=== PATIENT | female | born 1945 | race African-American/Black ===

== ENCOUNTER 2016-05-24 21:20 | Inpatient (IN) | payer BC, OTHER ==
--- NOTE | ~2016-05-24 | HP ---
History And Physical [place] [id number] [facility] [place]. [address] NAME: NAHID BRITO : 41 STATUS : ADM Mae PAT#: [id number] AGE: 71 ADM/REG DATE : 05/24/16 MR#: [id number] REPORT SERV DATE: 05/25/16 DICTATED BY: MADALYN GUIDRY DATE: 05/25/16 REPORT STATUS : Draft TRANSCRIBED BY: MODElza DATE: 05/25/16 DATE OF ADMISSION: 05/24/2016 HISTORY OF PRESENT ILLNESS: The patient is a 71-year-old, who was seen in the office yesterday with chief complaint of runny nose, sore throat, body aches, and chills. The patient had been coughing, wheezing with tightness in her chest which has worsened in the last two weeks. She had difficulty lying flat. Had noticed an increase in her blood pressure. In the office, had some frontal maxillary tenderness and was given antibiotics, for Zithromax. Later that evening, her symptoms worsened with worsening shortness of breath to the point where the patient felt like she could not catch her breath and was seen in the emergency room and was subsequently admitted for observation and placed on some Solu-Medrol. PAST MEDICAL HISTORY: 1. Mild persistent asthma with acute exacerbation. 2. Type 2 diabetes, with long-term insulin use. 3. Hypercholesterolemia. 4. COPD. 5. Essential hypertension. 6. Stage 4 chronic kidney disease. 7. Sleep apnea. SURGICAL HISTORY: Tonsillectomy, hysterectomy, cholecystectomy, varicose vein stripping, and cardiac bypass in 2009. FAMILY HISTORY: Father is . Mother is . There is a strong family history of diabetes type 2. Grandfather from cancer. Siblings are alive, but also have diabetes and have complications with hypertension. Younger sister has had an MN. SOCIAL HISTORY: She had a history of smoking, but no longer smokes. No alcohol use. The patient has four children. She owns her own home. She lives with family. She is a . 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 ALLERGIES: SHE HAS ALLERGIES TO TOMATOES THAT CAUSES RASH. REVIEW OF SYSTEMS: Complains of shortness of breath, tightness across her chest, anorexia, sore throat, runny nose. Complains of some heartburn, constipation, a little dysuria. CURRENT MEDICATIONS: Niacin 500 mg a day; pantoprazole 40 a day; Spiriva 18 mcg a day; allopurinol 300 a day, she has gout; aspirin 81 mg a day; budesonide 160/4.5 two puffs twice a day; Bumex 2 mg a day; Coreg 12.5 twice a day; Plavix 75 a day; Levemir; Singulair 10 a day; sliding scale NovoLog; 1000 units of vitamin D a day; magnesium 400 mg a day. PHYSICAL EXAMINATION: VITAL SIGNS: She has a blood pressure of 183/75, respiratory rate is 22, pulse rate is 73, she is afebrile at 98.8, and her sat on room air is 98%. History And Physical [address] [address] NAME: NAHID BRITO : 41 STATUS : ADM Mae PAT#: [id number] AGE: 71 ADM/REG DATE : 05/24/16 MR#: [id number] REPORT SERV DATE: 05/25/16 DICTATED BY: MADALYN GUIDRY DATE: 05/25/16 REPORT STATUS : Draft TRANSCRIBED BY: ALLYSON DATE: 05/25/16 HEENT: Within normal limits. LUNGS: Revealed increase in AP diameter with diffuse inspiratory and expiratory wheezing. In any time the patient takes deep breath, she is coughing and has a very raspy voice. CARDIAC: Regular rate. No murmurs, gallops, or thrills. ABDOMEN: Obese, soft with positive bowel sounds. No appreciable organomegaly. EXTREMITIES: Without any edema, cyanosis, or clubbing. Pulses are 2+ in the lower extremities. IMPRESSION: The patient with exacerbation of asthma. PLAN: We will observe her for a full 24 hours before making a decision of admission. Continue her on the antibiotics. We will re-evaluate tomorrow for possible discharge to home. ASCENCION/ALLYSON Madalyn Guidry M.D. / [id number] CC: Madalyn Guidry M.D.
--- NOTE | ~2016-05-24 | CN ---
Consultation Report [facility] [address] [place]. [address] NAME: NAHID BRITO : 41 STATUS : ADM Mae PAT#: [id number] AGE: 71 ADM/REG DATE : 05/24/16 MR#: [id number] REPORT SERV DATE: 05/27/16 DICTATED BY: JEANNETTE HERNANDEZ DATE: 05/26/16 REPORT STATUS : Draft TRANSCRIBED BY: MODL DATE: 05/26/16 PULMONARY CONSULTATION DATE OF CONSULTATION: 05/26/2016 REASON FOR CONSULTATION: Asthma exacerbation. HISTORY OF PRESENT ILLNESS: Ms Brito is a 71-year-old black female, former smoker, with obstructive sleep apnea on CPAP, and asthma plus possible COPD who was admitted complaining of a one-week history of increasing shortness of breath, wheezing, cough productive of yellow sputum, chills, and yellow nasal discharge. She states she was evaluated outpatient including negative for pharyngeal flu swab. She was prescribed azithromycin and had a poor response after one dose. She states she developed significant chills so she presented to her primary care physician and was subsequently admitted here. Pulmonary was consulted due to persistent symptoms despite bronchodilators, antibiotics, inhaled steroids, and systemic steroids. Currently, the patient is complaining of shortness of breath, wheezing, cough productive of yellow sputum, nasal congestion, and malaise. She states she was initially slightly better than on admission but is worse today than yesterday. PAST MEDICAL HISTORY: 1. Asthma diagnosed approximately 5 years ago, the patient has been intubated for asthma. 2. COPD-the patient states she has COPD, however, her most recent available pulmonary function testing in the medical record is from 08/28/2014 and does not reveal any airway obstruction. 3. Obstructive sleep apnea-on CPAP. 4. Former smoker. 5. Seasonal allergies. 6. Diabetes mellitus. 7. Hypertension. 8. Coronary artery disease/status post CABG. 9. Hyperlipidemia. 10.Chronic kidney disease. 11.Previous hysterectomy. 12.Previous cholecystectomy. 13.Tonsillectomy. 14.Varicose vein stripping. FAMILY HISTORY: She denies a family history of pulmonary diseases. SOCIAL HISTORY: Ms Brtio smoked one to one and half packs of cigarettes per day for 30 years and quit smoking 10 years ago. She has a long history of secondhand smoke exposure- her smoked and was "a chain smoker." She denies ethanol intake, past/present drug Consultation Report [place] [address] [facility] [place]. [address] NAME: NAHID BRITO : 43 STATUS : ADM Mae PAT#: [id number] AGE: 71 ADM/REG DATE : 05/24/16 MR#: [id number] REPORT SERV DATE: 05/27/16 DICTATED BY: JEANNETTE HERNANDEZ DATE: 05/26/16 REPORT STATUS : Draft TRANSCRIBED BY: ALLYSON DATE: 05/26/16 use, occupational exposures, or chewing tobacco. 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 She is a and has four children. MEDICATIONS: Outpatient and inpatient medications were reviewed and are as documented in the record. It is notable that as an outpatient, she was on Xolair per the record but she is currently unable to confirm this. She was on Singulair 10 mg once daily, Symbicort 160/4.5 mcg two puffs twice daily, and Spiriva 18 mcg once daily. ALLERGIES: SHE DENIES MEDICATION ALLERGIES. SHE IS ALLERGIC TO TOMATOES. REVIEW OF SYSTEMS: A 10-point system review was conducted and is remarkable for the symptoms as described in the history of present illness. She feels that her CPAP adequately controlled her symptoms of obstructive sleep apnea. PHYSICAL EXAMINATION: VITAL SIGNS: Temperature 98.1 degrees, heart rate 73, blood pressure 153/69, respiratory rate 20, and oxygen saturation 95% on room air. GENERAL: Pleasant, obese, black female. Alert, oriented, no apparent distress. Speaking in short sentences without difficulty but unable to speak in long sentences. Frequent cough during exam. HEENT: Normocephalic. Atraumatic. There is no scleral icterus. The conjunctivae are clear. There is no sinus tenderness. The oropharynx is clear. NECK: Supple. LUNGS: There are scattered inspiratory and expiratory wheezes in all hogan. There are audible wheezes as well. There are no crackles or rhonchi. HEART: Distant. Regular rate and rhythm. No ectopy was noted. ABDOMEN: Obese. Soft. Nontender. Nondistended. There are normal bowel sounds in all four quadrants. BILATERAL EXTREMITIES: There is trace pretibial edema. There is no cyanosis or clubbing. NEUROLOGICAL: Limited exam was found to be nonfocal. SKIN: No rashes were noted. LABORATORY RESULTS: Labs were reviewed and are as documented in the record. Notable labs include a white blood cell count of 7.3. The arterial blood gas on admission revealed a pH of 7.41, pCO2 of 38, and pO2 of 125 on supplemental oxygen at a flow rate of 2 L/minute. The arterial blood gas today revealed a pH of 7.46, pCO2 of 37, and pO2 of 69 on supplemental oxygen at a flow rate of 2 L/minute. IMAGING: The chest x-ray done today did not reveal any infiltrates or effusions. Note that her last CT angiogram of the chest done here was 08/29/2013. It was unremarkable. Consultation Report [address] [place]. [address] NAME: NAHID BRITO : 43 STATUS : ADM Mae PAT#: [id number] AGE: 71 ADM/REG DATE : 05/24/16 MR#: [id number] REPORT SERV DATE: 05/27/16 DICTATED BY: JEANNETTE HERNANDEZ DATE: 05/26/16 REPORT STATUS : Draft TRANSCRIBED BY: ALLYSON DATE: 05/26/16 No other more recent CT scans of the chest are found in the record. ASSESSMENT AND PLAN: Ms Brito is a 71-year-old black female, former smoker, with asthma and possible chronic obstructive pulmonary disease who was admitted with an exacerbation secondary to bronchitis and nasal symptoms as described above. She has worsening symptoms and hypoxia despite treatment with antibiotics, bronchodilators, and inhaler as well as systemic steroids. 1. I recommend increasing her systemic steroids. Her Solu-Medrol will be increased to 60 mg q.6 h. from 80 mg q.8 h. IV. 2. I recommend adding nebulized steroids-budesonide 0.5 mg twice daily via nebulization will be added to her regimen. 3. I recommend improving pulmonary toilet. EZPAP and flutter valve will be added. 4. We would continue Rocephin. Recommend adding azithromycin and a probiotic to her regimen. 5. Check sputum cultures. 6. Continue Spiriva, Singulair and Dulera. 7. Add saline nasal spray. 8. With regard to her obstructive sleep apnea, I recommend she continue using her home CPAP while here as an inpatient. 9. As noted above, she has a history of greater than 30 pack-years of smoking and quit 10 years ago. Per available information, she has not had a recent lung cancer screening CT scan of the chest. Additionally, she denies recent CT scan of the chest. Recommend, she have an outpatient lung cancer screening CT scan of the chest after discharge. 10.She may follow up with her usual health and social care teacher, Dr. Cesar Mayfield, after discharge. Thank you very much for this consultation. EMMANUEL/ALLYSON Jeannette Hernandez M.D. / [id number] CC: Joel Guidry M.D.
--- NOTE | ~2016-05-24 | DS ---
Discharge Summary [facility] [address] [place]. [address] NAME: NAHID BRITO : 41 STATUS : DIS IN PAT#: [id number] AGE: 71 ADM/REG DATE : 05/24/16 MR#: [id number] REPORT SERV DATE: 06/09/16 DICTATED BY: MADALYN WARREN DATE: 06/08/16 REPORT STATUS : Draft TRANSCRIBED BY: ALLYSON DATE: 06/08/16 Data Collection from hospitalization DISCHARGE DIAGNOSES: 1. Chronic obstructive lung disease. 2. Asthma exacerbation. 3. Stage IV chronic kidney disease. 4. Acute bronchitis. 5. Hypoxia. 6. Osteoarthritis of the left hip. 7. Insulin-dependent diabetes mellitus. 8. Essential hypertension. 9. Sleep apnea. 10.Hypercholesterolemia. 11.History of tobacco use. CONSULTATIONS: Jeannette Byrd M.D. PROCEDURES: None. MEDICATIONS: ProAir one puff via inhaler every four hours as needed, albuterol one nebulized inhalation as needed, Zyloprim 300 mg every morning, aspirin 81 mg every morning, Symbicort two puffs via inhaler twice a day, Bumex 2 mg every morning, Coreg 12.5 mg twice a day, vitamin D 1000 units every morning, Plavix 75 mg every morning, NovoLog FlexPen 20 units subcutaneously three times a day before meals, Tarceva 90 units subcutaneously at bedtime, BiDil one tablet every eight hours, Mag-Ox 400 mg three times a day, Singulair 10 mg at bedtime, Klor-Con 10 mEq every morning, Deltasone as instructed, Zantac 150 mg twice a day, Crestor 40 mg every morning, Spiriva HandiHaler one capsule via inhaler daily, Ultram 50 mg twice a day as needed, and Nucala one dose injection every 30 days as instructed. She was instructed to stop potassium. CONDITION AT DISCHARGE: Stable. DISPOSITION: The patient was discharged home to be followed by home health care on a regular diet with activities as instructed. She would follow up with me on 06/12/[address] Brittanie Jordan as instructed. HOSPITAL COURSE: This is a 71-year-old female who was seen in the office on the day prior to this admission with a chief complaint of a runny nose, sore throat, body aches, and chills. She has been coughing and wheezing with tightness in her chest, which had worsened over the past two weeks. She had difficulty lying flat. She had noticed an increase in her blood pressure. In the office, she had some frontal maxillary tenderness and was given antibiotics with Zithromax. Later that evening, her symptoms worsened with worsening shortness of breath to the point where the patient felt like she could not catch her breath. She was seen in the emergency room and was admitted at this time for further evaluation and treatment. Upon admission, she was placed on some Solu-Medrol. She was felt to have an exacerbation of Discharge [place] [address] [facility] [place]. [address] NAME: NAHID BRITO : 41 STATUS : DIS IN PAT#: [id number] AGE: 71 ADM/REG DATE : 05/24/16 MR#: [id number] REPORT SERV DATE: 06/09/16 DICTATED BY: MADALYN WARREN DATE: 06/08/16 REPORT STATUS : Draft TRANSCRIBED BY: ALLYSON DATE: 06/08/16 her asthma. Antibiotics were continued. The following day, she was seen by Dr. Jeannette Byrd regarding asthma exacerbation. She was currently complaining of shortness of breath, wheezing, cough productive of yellow sputum, nasal congestion, and malaise. She said she initially was better then on admission, but was now worse. Chest x-ray did not reveal any infiltrates or effusions. She had worsening symptoms and hypoxia despite treatment with antibiotics, bronchodilators, and inhalers as well as systemic steroids. She recommended increasing the systemic steroids, Solu-Medrol was increased. She recommended adding nebulized steroids - budesonide via nebulization. EzPAP and flutter valves were going to be added. Rocephin was continued. She recommended adding azithromycin and a probiotic to her regimen. Sputum cultures would be obtained. Spiriva, Singulair, and Dulera were continued. Saline nasal spray was added. It was recommended that she continue using her CPAP while she was an inpatient. She has a past history of tobacco use, but quit 10 years ago. It was recommended that she have an outpatient lung cancer screening, CT scan of the chest after discharge. On 05/27/2016, she said she was feeling better. She was breathing better. She continued to have a cough. She still had some chest tightness and wheezing. She had adequate oral intake. She was tolerating her CPAP at night. On 05/29/2016, she had a heart rate of 80. Her coughing had decreased. She said she was feeling better, but still has some shortness of breath. She had no edema. Pulmicort and Brovana were continued. Spiriva was stopped. IV Solu-Medrol continued. Dulera was discontinued. On 05/30/2016, she was feeling better, but still had a cough. Solu-Medrol was stopped. She was placed on prednisone. Azithromycin was discontinued. Ultram was added to her regimen for her left hip pain. She does have osteoarthritis. Over the next couple of days, discharge planning was performed. She continued to do well. On 06/01/2016, she was alert and cooperative. She said she was feeling better. She wanted to go home. Discharge instructions were given. Due to her improved and stable condition, she was discharged home with the above-stated instructions. Information collected by: Merle Kaur I submit the above information as my discharge summary. OLEG/ALLYSON Madalyn Warren M.D. / [id number] CC: Madalyn Warren M.D.
[~2016-05-24 21:20] MED LIST: ACETSUP650 PR; AMARYL1 MG PO; AMARYL4 PO; APRES50 PO; ASA5GR PO; ASAB PO; BIDIL20/37 PO; BROVANA15 MCG INH; BUM1 PO; BUM2 PO; CLARIT10 PO; COREG12 PO; COZ25 PO; COZ50 PO; COZAAR100 MG PO; CRESTOR40 MG PO; DSS PO; DULERA 200 MCG/13 GM INH; DUONEB INH; FLONASE NAS; FLOVENT220 INH; GLUCCHONDR PO; HALF81 PO; IMDUR30 PO; IRON325 MG PO; ISORDIL20 PO; IVVIBRA; KLONOPIN WAF0.25 MG PO; KLOR-CON M1010 MEQ PO; L40 PO; LEVAQUIN750 MG PO; LEVEMFLXPN SC; LEVEMIR SC; MEDROLPAK4 PO; MONODOX100 MG PO; NIASPAN500 PO; NOVOLOG; NOVOLOG SC; NOVOPEN SC; NUCALA SC; P1; P10; P10 PO; P20 PO; PEP20 PO; PLAVIX PO; PRAVACHOL40 MG PO; PROAIR HFA INH; PROTONIX PO; PROVENTSOL INH; PULRESP.5 INH; QVAR 80 MCG80 MCG INH; QVAR80 MCG INH; SINGULAIR1 PO; SLOW-FE PO; SODBICAR10 PO; SPIRIVA INH; SPIRIVA RESPIMAT INH; SPIRO25 PO; STERAPRED DS10 MG; STERAPRED DS10 MG PO; SYMBICORT 160/41 INH INH; SYMBICORT 80/4.1 INH INH; T PO; TESS PO; TOPXL25 PO; VIB100 PO; VICTOZA18 MG/3 ML SC; VITAMIN D1000 UNI1 PO; VITAMIN D31000 UNIT PO; VITD PO; XOLAIR IV; XOLAIR SC; Z100 PO; Z300 PO; [UNRECOGNIZED DRUG - REMARK] IM/SC
[2016-05-24 22:19] LABS: BASOPHILS 0.4 %; BASOPHILS ABSOLUTE 0.03 10/3/uL (0.0-0.16); EOSINOPHILS 1.1 %; EOSINOPHILS ABSOLUTE 0.08 10/3/uL (0.0-0.53); ER CBC TAT 0 Hrs 05 Mins; HEMATOCRIT 34.7 % (36.0-48.0); HEMOGLOBIN 10.4 g/dL (12.0-16.0); IMMATURE GRANULOCYTES 0.3 %; IMMATURE GRANULOCYTES ABSOLUTE 0.02 10/3/uL (0.0-0.11); LYMPHOCYTES 35.3 %; LYMPHOCYTES ABSOLUTE 2.57 10/3/uL (0.67-4.30); MEAN CORPUSCULAR HEMOGLOB 20.3 pg (26.0-34.0); MEAN CORPUSCULAR VOLUME 67.8 fL (80-100); MONOCYTES 7.3 %; MONOCYTES ABSOLUTE 0.53 10/3/uL (0.21-1.20); NEUTROPHILS 55.6 %; NEUTROPHILS ABSOLUTE 4.06 10/3/uL (2.02-8.40); PLATELET COUNT 175 10/3/uL (150-400); RED CELL COUNT 5.12 10/6/uL (4.0-5.6); WHITE BLOOD CELLS 7.3 10/3/uL (4.5-10.5)
[2016-05-24 22:20] LABS: MANUAL DIFF NO %
[2016-05-24 22:33] LABS: A/G RATIO 0.8 (0.7-1.9); ALKALINE PHOSPHATASE 136 U/L (45-117); CALCIUM, SERUM 9.6 MG/DL (8.5-10.4); CHLORIDE, SERUM 102 MMOL/L (96-112); CREATININE 2.93 MG/DL (0.55-1.02); GFR AFRICAN AMERICAN 18 ML/MIN (>=60); GFR NON AFRICAN AMERICAN 15 ML/MIN (>=60); GLOBULIN 4.2 G/DL (2.5-4.1); POTASSIUM, SERUM 4.2 MMOL/L (3.5-5.3); SGOT(AST) 13 U/L (5-40); SGPT(ALT) 17 U/L (5-65); SODIUM, SERUM 140 MMOL/L (135-148); TOTAL BILIRUBIN 0.7 MG/DL (0-1.2); TOTAL PROTEIN 7.7 G/DL (6.0-8.5)
[2016-05-24 22:36] LABS: ALBUMIN 3.5 G/DL (3.5-5.0); BUN (BLOOD UREA NITROGEN) 60 MG/DL (6-23); CO2 (CARBON DIOXIDE) 26 MMOL/L (24-34); GLUCOSE, SERUM 182 MG/DL (60-99)
[2016-05-24 22:40] LABS: ANISOCYTOSIS 1+ (5-10/OIF) (0-5/OIF); PLATELET ESTIMATE ADQ (ADEQUATE)
[2016-05-24 22:41] LABS: POIKILOCYTOSIS 1+ (5-10/OIF) (0-5/OIF)
[2016-05-25 00:38] LABS: ALLENS TEST Pos; BE (BASE EXCESS) -0.6 MEQ/L (0 +/- 2.5); CARBOXYHEMOGLOBIN 0.9 % (0-3); DEVICE NC; HCO3 (ACTUAL BICARBONATE) 23.8 MEQ/L (23-27); INSTRUMENT SERIAL # 8087; METHEMOGLOBIN 0.2 % (0-3); O2 CONTENT 15.3 VOL% (18-24); OPERATOR ID 17589; PCO2 (CO2 TENSION) 38 MMHG (35-45); PO2 (O2 TENSION) 125 MMHG (79-93); SAMPLE Arterial; pH 7.41 (7.37-7.43)
[2016-05-25 01:00] LABS: TROPONIN I <0.02 NG/ML (<0.05)
[2016-05-25 01:27] LABS: INFLUENZA A SCREEN NEGATIVE (NEGATIVE); INFLUENZA B SCREEN NEGATIVE (NEGATIVE)
[2016-05-25] MEDS ORDERED: COREG12 PO (05:14)
[2016-05-25] MEDS ORDERED: CRESTOR40 MG PO (05:14)
[2016-05-25] MEDS ORDERED: BUM2 PO (05:14)
[2016-05-25] MEDS ORDERED: ZANTAC (05:14)
[2016-05-25] MEDS ORDERED: HALF81 PO (05:14)
[2016-05-25] MEDS ORDERED: SINGULAIR1 PO (05:14)
[2016-05-25] MEDS ORDERED: SYMBICORT 160/41 INH INH (05:15)
[2016-05-25] MEDS ORDERED: Proair Hfa (05:20)
[2016-05-25] MEDS ORDERED: SPIRIVA INH (05:20)
[2016-05-25] MEDS ORDERED: TRESIBA FL200 UNIT/1 SC (05:21)
[2016-05-25] MEDS ORDERED: NOVOPEN SC (05:21)
[2016-05-25] MEDS ORDERED: NUCALA IJ (05:21)
[2016-05-25] MEDS ORDERED: BIDIL20/37 PO (05:22)
[2016-05-25] MEDS ORDERED: ALBUTEROL0.083 % INH (05:22)
[2016-05-25] MEDS ORDERED: PLAVIX PO (05:22)
[2016-05-25] MEDS ORDERED: VITAMIN D1000 UNI1 PO (05:22)
[2016-05-25] MEDS ORDERED: Z300 PO (05:22)
[2016-05-25] MEDS ORDERED: MAGOX4 PO (05:22)
[2016-05-25] MEDS ORDERED: KLOR-CON M1010 MEQ PO (05:23)
[2016-05-26 19:02] LABS: ALLENS TEST Pos; BE (BASE EXCESS) 1.8 MEQ/L (0 +/- 2.5); CARBOXYHEMOGLOBIN 0.6 % (0-3); HCO3 (ACTUAL BICARBONATE) 25.4 MEQ/L (23-27); HEMOBLOGIN CONTENT 11.3 G/DL (12-16); INSTRUMENT SERIAL # 8083; METHEMOGLOBIN 0.3 % (0-3); PCO2 (CO2 TENSION) 37 MMHG (35-45); PO2 (O2 TENSION) 69 MMHG (79-93); SAMPLE Arterial; pH 7.46 (7.37-7.43)
[2016-05-27 06:44] LABS: CALCIUM, SERUM 9.6 MG/DL (8.5-10.4); CHLORIDE, SERUM 100 MMOL/L (96-112); CO2 (CARBON DIOXIDE) 22 MMOL/L (24-34); CREATININE 2.67 MG/DL (0.55-1.02); GFR AFRICAN AMERICAN 20 ML/MIN (>=60); GFR NON AFRICAN AMERICAN 17 ML/MIN (>=60); POTASSIUM, SERUM 4.5 MMOL/L (3.5-5.3); SODIUM, SERUM 135 MMOL/L (135-148)
[2016-05-27 06:46] LABS: BUN (BLOOD UREA NITROGEN) 70 MG/DL (6-23); GLUCOSE, SERUM 267 MG/DL (60-99)
[2016-05-28 16:54] LABS: CHLORIDE, SERUM 103 MMOL/L (96-112); CO2 (CARBON DIOXIDE) 22 MMOL/L (24-34); CREATININE 2.31 MG/DL (0.55-1.02); GFR AFRICAN AMERICAN 24 ML/MIN (>=60); GFR NON AFRICAN AMERICAN 20 ML/MIN (>=60); POTASSIUM, SERUM 4.4 MMOL/L (3.5-5.3); SODIUM, SERUM 137 MMOL/L (135-148)
[2016-05-28 16:55] LABS: BUN (BLOOD UREA NITROGEN) 63 MG/DL (6-23); GLUCOSE, SERUM 195 MG/DL (60-99)
[2016-05-30 06:37] LABS: BUN (BLOOD UREA NITROGEN) 64 MG/DL (6-23); CALCIUM, SERUM 8.8 MG/DL (8.5-10.4); CHLORIDE, SERUM 100 MMOL/L (96-112); CO2 (CARBON DIOXIDE) 24 MMOL/L (24-34); CREATININE 2.12 MG/DL (0.55-1.02); GFR AFRICAN AMERICAN 26 ML/MIN (>=60); GFR NON AFRICAN AMERICAN 23 ML/MIN (>=60); GLUCOSE, SERUM 218 MG/DL (60-99); POTASSIUM, SERUM 4.4 MMOL/L (3.5-5.3); SODIUM, SERUM 133 MMOL/L (135-148)
[2016-05-30 08:04] LABS: PROCALCITONIN <0.05 ng/mL (<0.5)
[2016-06-01] MEDS ORDERED: P10 PO (13:13)
[2016-06-01] MEDS ORDERED: ULTRAM50 PO (13:15)
== END 2016-06-01 15:35 | disposition home health service (06) | DRG 191 ==
LOC: ER 21:20 → CDU1 23:00 → 4SO 05-27 15:43
PROVIDERS: Emergency Medicine; Internal Medicine Critical Care Medicine; Internal Medicine Geriatric Medicine; Specialist
DX: J44.0 Chronic obstructive pulmonary disease with (acute) lower respiratory infection (principal); N18.4 Chronic kidney disease, stage 4 (severe); J45.901 Unspecified asthma with (acute) exacerbation; E11.22 Type 2 diabetes mellitus with diabetic chronic kidney disease; Z68.42 Body mass index [BMI] 45.0-49.9, adult; Z87.891 Personal history of nicotine dependence; I12.9 Hypertensive chronic kidney disease with stage 1 through stage 4 chronic kidney disease, or unspecified chronic kidney disease; Z79.4 Long term (current) use of insulin; R09.02 Hypoxemia; M16.12 Unilateral primary osteoarthritis, left hip; E78.00 Pure hypercholesterolemia, unspecified; E66.9 Obesity, unspecified; G47.33 Obstructive sleep apnea (adult) (pediatric); I25.10 Atherosclerotic heart disease of native coronary artery without angina pectoris; Z95.1 Presence of aortocoronary bypass graft; E78.5 Hyperlipidemia, unspecified; R73.9 Hyperglycemia, unspecified; J20.9 Acute bronchitis, unspecified
CPT/HCPCS: 36600; 71010; 80048; 80053; 82805; 82962; 83880; 84145; 84484; 85025; 87040; 87804; 93005; 94640; 94668; 96374; 99285; A9270-GY; G0378; J2930

== ENCOUNTER 2016-06-06 21:51 | Emergency (ER) | payer BC, OTHER ==
[2016-06-06 17:42] LABS: BASOPHILS 0.1 %; BASOPHILS ABSOLUTE 0.01 10/3/uL (0.0-0.16); EOSINOPHILS 0.4 %; EOSINOPHILS ABSOLUTE 0.04 10/3/uL (0.0-0.53); HEMATOCRIT 34.3 % (36.0-48.0); HEMOGLOBIN 10.5 g/dL (12.0-16.0); IMMATURE GRANULOCYTES 1.9 %; LYMPHOCYTES 25.6 %; LYMPHOCYTES ABSOLUTE 2.71 10/3/uL (0.67-4.30); MEAN CORPUS HGB CONC 30.6 g/dL (32.0-36.0); MEAN CORPUSCULAR VOLUME 68.5 fL (80-100); MONOCYTES ABSOLUTE 0.85 10/3/uL (0.21-1.20); NEUTROPHILS ABSOLUTE 6.79 10/3/uL (2.02-8.40); PLATELET COUNT 189 10/3/uL (150-400); RBC DISTRIBUTION WIDTH 17.7 % (12.0-16.0); RED CELL COUNT 5.01 10/6/uL (4.0-5.6)
[2016-06-06 17:43] LABS: ER CBC TAT 0 Hrs 08 Mins; MANUAL DIFF NO %; WHITE BLOOD CELLS 10.6 10/3/uL (4.5-10.5)
[2016-06-06 17:45] LABS: INTERNATIONAL NORMAL RATI 1.1 UNITS (-); PARTIAL THROMBO TIME 25.8 SEC (22.5-37.2); PROTIME (NOT ORD) 13.8 SEC (12.0-14.5)
[2016-06-06 17:53] LABS: CALCIUM, SERUM 8.4 MG/DL (8.5-10.4); CHEST PAIN PROFILE TAT 0 Hrs 18 Mins; CHLORIDE, SERUM 104 MMOL/L (96-112); CO2 (CARBON DIOXIDE) 27 MMOL/L (24-34); CREATININE 2.03 MG/DL (0.55-1.02); GFR AFRICAN AMERICAN 27 ML/MIN (>=60); GFR NON AFRICAN AMERICAN 24 ML/MIN (>=60); GLUCOSE, SERUM 176 MG/DL (60-99); POTASSIUM, SERUM 3.9 MMOL/L (3.5-5.3); TROPONIN I <0.02 NG/ML (<0.05)
[2016-06-06 17:54] LABS: BUN (BLOOD UREA NITROGEN) 37 MG/DL (6-23); SODIUM, SERUM 141 MMOL/L (135-148)
[2016-06-06 17:56] LABS: ANISOCYTOSIS 1+ (5-10/OIF) (0-5/OIF); ELLIPTOCYTES 1+ (3-10/OIF) (0-2/OIF); PLATELET ESTIMATE ADQ (ADEQUATE); POIKILOCYTOSIS 1+ (5-10/OIF) (0-5/OIF)
[2016-06-06 17:57] LABS: ACANTHOCYTES OCC (0-2/OIF)
[~2016-06-06 21:51] MED LIST changes: +ALBUTEROL0.083 % INH; +MAGOX4 PO; +NUCALA IJ; +Proair Hfa; +TRESIBA FL200 UNIT/1 SC; +ULTRAM50 PO; +ZANTAC
[2016-06-06] MEDS ORDERED: P10 PO (21:57)
[2016-06-06 22:15] LABS: BE (BASE EXCESS) 2.2 MEQ/L (0 +/- 2.5); CARBOXYHEMOGLOBIN 1.1 % (0-3); HCO3 (ACTUAL BICARBONATE) 25.2 MEQ/L (23-27); HEMOBLOGIN CONTENT 10.6 G/DL (12-16); INSTRUMENT SERIAL # 8087; METHEMOGLOBIN 0.3 % (0-3); O2 CONTENT 14.5 VOL% (18-24); PCO2 (CO2 TENSION) 33 MMHG (35-45); PO2 (O2 TENSION) 90 MMHG (79-93); SAMPLE Arterial
[2016-06-08] MEDS ORDERED: SPIRIVA RESPIMAT INH (16:18)
== END 2016-06-07 01:33 | disposition home or self-care (01) ==
LOC: ER 21:51
PROVIDERS: Emergency Medicine
DX: J45.909 Unspecified asthma, uncomplicated (principal); I11.0 Hypertensive heart disease with heart failure; N28.9 Disorder of kidney and ureter, unspecified; I50.9 Heart failure, unspecified; E86.0 Dehydration; J44.9 Chronic obstructive pulmonary disease, unspecified; E11.9 Type 2 diabetes mellitus without complications; Z91.018 Allergy to other foods; Z79.82 Long term (current) use of aspirin; Z79.4 Long term (current) use of insulin; Z79.899 Other long term (current) drug therapy
CPT/HCPCS: 36600; 71020; 80048; 82805; 83735; 83880; 84484; 85025; 85610; 85730; 93005; 94640; 94644; 96374; 99285; A9270-GY; J2930

== ENCOUNTER 2016-06-08 14:52 | Inpatient (IN) | payer BC, OTHER ==
--- NOTE | ~2016-06-08 | DS ---
Discharge Summary [facility] [address] [facility] [place]. [address] NAME: NAHID BRITO : 41 STATUS : DIS IN PAT#: [id number] AGE: 71 ADM/REG DATE : 06/08/16 MR#: [id number] REPORT SERV DATE: 06/20/16 DICTATED BY: MADALYN WARREN DATE: 06/20/16 REPORT STATUS : Draft TRANSCRIBED BY: ALLYSON DATE: 06/20/16 Data Collection from hospitalization DISCHARGE DIAGNOSES: 1. Acute on chronic congestive heart failure. 2. Asthma exacerbation. 3. Stage 4 chronic kidney disease. 4. Morbid obesity. 5. Type 2 diabetes mellitus. 6. Essential hypertension. 7. Obstructive sleep apnea. 8. Chronic obstructive pulmonary disease. 9. Former smoker. CONSULTATIONS: Levon Rico PA-C. PROCEDURES PERFORMED: None. MEDICATIONS: Zyloprim 300 mg every morning, aspirin 81 mg every morning, Bumex 2 mg every morning, Coreg 12.5 mg twice a day, Plavix 75 mg every morning, vitamin D 1000 units every morning, Zantac 150 mg twice a day, NovoLog FlexPen 20 units subcutaneously before meals, Tresiba 90 units subcutaneously at bedtime, BiDil 1 tablet every 8 hours, Mag-Ox 400 mg three times a day, MiraLAX powder 1 packet daily, ProAir 1 puff via inhaler every 4 hours as needed, Crestor 40 mg every morning, Symbicort 2 puffs via inhaler twice a day, albuterol 1 nebulized inhaler every 4 hours as needed, Ultram 50 mg twice a day as needed, Deltasone 1 dose as directed, Spiriva 2 puffs via inhaler every morning, and MiraLAX 17 g daily as instructed. CONDITION AT DISCHARGE: Stable. DISPOSITION: The patient was discharged home on 1800-calorie diabetic diet with activities as instructed. She would follow up with me on 06/23/2016, and with Dr. Shila Mendez on 06/22/2016. HOSPITAL COURSE: This is a 71-year-old female, who had been discharged from the hospital on 06/06/2016, she has been in the hospital due to an asthma exacerbation. She was seen at this time with difficulty breathing and wheezing. She was felt to have mild persistent asthma with status asthmaticus. She also had a cough. She has a history of type 2 diabetes mellitus. She was admitted to the hospital at this time for further evaluation and treatment. Upon admission, she had diffuse audible wheezing. She had 2 to 3+ edema. The following day, she continued to cough with diffuse wheezing. She does have sleep apnea and uses CPAP. She was seen in consultation by Levon Rico regarding her shortness of breath and cough. The patient is followed by Dr. Mayfield in the Outpatient Clinic. She is on a pulmonary regimen of albuterol, Symbicort, and Spiriva. She also takes montelukast. She does not usually require supplemental oxygen. She does have known obstructive sleep apnea and is compliant with CPAP therapy. She stopped smoking over 10 years ago. Prior to that time, Discharge Summary [address] [place]. [address] NAME: NAHID BRITO : 41 STATUS : DIS IN PAT#: [id number] AGE: 71 ADM/REG DATE : 06/08/16 MR#: [id number] REPORT SERV DATE: 06/20/16 DICTATED BY: MADALYN WARREN DATE: 06/20/16 REPORT STATUS : Draft TRANSCRIBED BY: ALLYSON DATE: 06/20/16 she has smoked one-pack a day for about 20 years. She says her exercise tolerance is quite limited. She is only able to ambulate around her house before experiencing some degree of shortness of breath. She had been hospitalized as recently as one to two weeks prior to this admission. During that time, she was treated for symptoms related to her asthma as well as volume overload. She did eventually improved and then transitioned home. Unfortunately, she had persistent worsening of her breathing, as well as worsening lower extremity edema which culminated in presentation to the Pulmonary Clinic. While there, she was noted to be quite dyspneic as well as having lower extremity edema. There was mention of a significant weight change in a short interval. There was concern of her overall pulmonary status and as such she had been admitted. On arrival, she has been hypertensive. Initial blood work demonstrated elevated BNP of 161.2. She had been placed on breathing treatments, steroids, and diuretics. Since that time, she improved to some degree. She still has some persistent dyspnea as well as a cough and wheeze. Her main pulmonary complaints at this time was her cough that was dry and nonproductive. She has some wheezing and tightness in her chest. She was felt to have some volume overload. She had received diuretics with some improvement in her pulmonary status, lower extremity edema was improving. Echocardiogram was requested. IgE was requested as well. With regard to her obstructive sleep apnea, she brought her own home unit, and was compliant with therapy. On 06/10/2016, she remained on bronchodilators and O2, diuretics were continued. Her shortness of breath had improved. Her swelling was better. Her edema resolved. On 06/11/2016, her blood sugars were elevated. Her shortness of breath and wheezing had improved. Discharge planning was performed. On 06/13/2016, she was in no acute distress. She had no wheezing. She was tolerating her diet. Discharge instructions were given. Due to her improved and stable condition, she was discharged home with the above-stated instructions. Information collected by: Merle Kaur I submit the above information as my discharge summary. TG/ALLYSON Madalyn Warren M.D. / [id number] CC: Madalyn Warren M.D.
--- NOTE | ~2016-06-08 | CN ---
Consultation Report [facility] [address] [place]. [address] NAME: NAHID BRITO : 41 STATUS : ADM IN PAT#: [id number] AGE: 71 ADM/REG DATE : 06/08/16 MR#: [id number] REPORT SERV DATE: 06/09/16 DICTATED BY: LEVON OLIVAREZ DATE: 06/09/16 REPORT STATUS : Draft TRANSCRIBED BY: MODL DATE: 06/09/16 CONSULTATION DATE OF CONSULTATION: 06/09/2016 CHIEF COMPLAINT: Shortness of breath and cough in a patient with known asthma and diastolic dysfunction. HISTORY OF PRESENT ILLNESS: Ms. Nahid Brito is a morbidly obese 71-year-old female with a past medical history significant for asthma, obstructive sleep apnea with CPAP compliance, and diastolic dysfunction, who presents to [facility]'s emergency room with complaints of worsening shortness of breath and lower extremity edema of approximately three to four days' duration. It should be noted that the patient was hospitalized at [facility] as recently as one-two weeks ago for similar complaints. She has had a difficult course in the short interim. Ms. Brito is followed by Dr. Mayfield in our outpatient clinic. She is on a pulmonary regimen of albuterol, Symbicort, and Spiriva. She also takes montelukast. She does not usually require supplemental oxygen. She does have known obstructive sleep apnea and is compliant with CPAP therapy. The patient quit smoking over 10 years ago, prior to this time, she smoked approximately one pack a day for probably 20 years. She describes her exercise tolerance as being quite limited, being only able to ambulate around her house before experiencing some degree of shortness of breath. Again, the patient was hospitalized as recently as one-two weeks ago. During this time, she was treated for symptoms related to her asthma as well as volume overload. The patient did eventually improve and transitioned to home. Unfortunately, she had persistent worsening of her breathing as well as worsening lower extremity edema which culminated in her presentation to the Pulmonary Clinic. While there, she was noted to be quite dyspneic as well as the lower extremity edema. There was mention of a significant weight change in a short interval. At this time, there was concern about overall pulmonary status and as such, she was direct admitted to [facility]. Upon arrival, she was noted to be hypertensive with a blood pressure of 174. She was on room air with an oxygenation of 96%. Initial blood work demonstrated an elevated BNP of 161.2. The patient was placed on breathing treatments, steroids, and diuretics. Since this time, the patient has improved to some degree. That being said, she still has some persistent dyspnea as well as cough and wheeze. For the aforementioned reasons, she has been referred to the pulmonary service for further assessment. Currently, the patient's main pulmonary complaint is cough. This is dry and nonproductive. She does have some wheezing and tightness in her chest. She denies any recent episodes of hemoptysis. Consultation Report [place] [id number] [facility] [place]. [address] NAME: NAHID BRITO : 41 STATUS : ADM IN [facility]#: [id number] AGE: 71 ADM/REG DATE : 06/08/16 MR#: [id number] REPORT SERV DATE: 06/09/16 DICTATED BY: LEVON OLIVAREZ DATE: 06/09/16 REPORT STATUS : Draft TRANSCRIBED BY: ALLYSON DATE: 06/09/16 She currently denies any murmurs, angina, or palpitations. She has had some worsening lower extremity edema as of late. In regard to constitutional symptoms, she currently denies fever, chills, nausea, vomiting, chest pain, or abdominal pain. PAST MEDICAL HISTORY: 1. Severe persistent asthma. 2. Congestive heart failure. 3. Obstructive sleep apnea with CPAP compliance. 4. Hypertension. 5. Type 2 diabetes. 6. Gout. PAST SURGICAL HISTORY: 1. Appendectomy. 2. CABG. 3. Gallbladder surgery. FAMILY HISTORY: The patient has a family history of hypertension, diabetes, and coronary artery disease. There is a strong family history of asthma as well. SOCIAL HISTORY: The patient is . She has family who are involved in her healthcare. 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 She denies any known exposures to dust, silica, or asbestos. She denies any new pets or other known respiratory triggers within the home. TOBACCO/ALCOHOL: As previously mentioned, the patient quit smoking approximately 10 years ago, prior to this time, she smoked approximately a pack a day for maybe 20 years. She denies any recent alcohol or illicit drug use. MEDICATIONS: 1. Albuterol. 2. Allopurinol 300 mg. 3. Aspirin 81 mg. 4. Symbicort. 5. Bumex 2 mg. 6. Carvedilol 12.5 mg. 7. Clopidogrel 75 mg. 8. Insulin. 9. Mag oxide 400 mg. 10.Prednisone 10 mg. 11.Ranitidine 150 mg. 12.Rosuvastatin 40. 13.Spiriva. Consultation Report [address] [address] NAME: NAHID BRITO : 41 STATUS : ADM IN [facility]#: [id number] AGE: 71 ADM/REG DATE : 06/08/16 MR#: [id number] REPORT SERV DATE: 06/09/16 DICTATED BY: LEVON OLIVAREZ DATE: 06/09/16 REPORT STATUS : Draft TRANSCRIBED BY: ALLYSON DATE: 06/09/16 14.Tramadol 50 mg. ALLERGIES: THE PATIENT HAS ALLERGIES TO TOMATOES. REVIEW OF SYSTEMS: Complete review of systems was performed with pertinent positives and negatives contained within the body of the HPI. PHYSICAL EXAMINATION: VITAL SIGNS: Blood pressure is 125/68, heart rate is 58, T-max 97.6, respiratory rate is 16, SpO2 is 98% on room air. GENERAL: The patient is a pleasant, well-nourished/well-developed female, who is not currently exhibiting any signs of acute distress. SKIN: Skin with appropriate texture and turgor. No rashes, lesions, or ulcers. Nails are clear without cyanosis or clubbing. HEENT: Head: Skull is normocephalic/atraumatic. Facies symmetric. No masses or lesions. Eyes: Sclera anicteric, conjunctiva pink without exudates. Extraocular movements intact. Pupils are equal, round, reactive to light. Ears: Auricles and tragus without pain to palpation. Hearing is grossly intact. Nose: Bilateral nasal patency. Sinuses without tenderness upon palpation. Throat: The patient is Mallampati class 4. Lips, oral mucosa, tongue, palate, and pharynx pink and moist without lesions. Uvula rises equally on phonation. Tongue midline without deviation. NECK: Neck supple. Trachea midline. No cervical lymphadenopathy appreciated. THORAX/LUNGS: Thorax is symmetric with equal chest rise. Breath sounds audible through entire field. Very faint expiratory wheezes appreciated throughout. No rales or rhonchi. CARDIOVASCULAR: Regular rate and rhythm. No murmurs, rubs, or gallops. Anterior chest without thrills, heaves, or lifts. ABDOMEN: Soft. Nondistended, nontender. Active bowel sounds in all four quadrants. No hepatosplenomegaly noted. PERIPHERAL/VASCULAR: 2+ pitting edema. No varicosities, stasis changes, open sores, ulcerations, or phlebitis. 2+ pulses in radial and dorsalis pedis. MUSCULOSKELETAL: Full AROM and PROM in all joints. No evidence of erythema, deformity, or crepitus. NEUROLOGIC: CN II through XII grossly intact. Good muscle bulk and tone bilaterally. Strength 5/5 throughout. PSYCHIATRIC: The patient demonstrates good judgment and insight. The patient is A and O x3. Accessory data reveals a BNP of 161.2. Chest x-ray reveals no acute cardiopulmonary process. IMPRESSION: 1. Volume overload. 2. Asthma exacerbation. 3. Obstructive sleep apnea with CPAP compliance. Consultation Report [address] [address] NAME: NAHID BRITO : 41 STATUS : ADM IN [facility]#: [id number] AGE: 71 ADM/REG DATE : 06/08/16 MR#: [id number] REPORT SERV DATE: 06/09/16 DICTATED BY: LEVON OLIVAREZ DATE: 06/09/16 REPORT STATUS : Draft TRANSCRIBED BY: ALLYSON DATE: 06/09/16 PLAN: 1. At this time, the patient has received diuretics with some improvement in her pulmonary status. Her lower extremity edema has improved as well. We will check an echocardiogram. 2. In regard to the patient's asthma exacerbation, she has been placed on appropriate regimen. We will check an IgE at this time. 3. In regard to the patient's obstructive sleep apnea, she has brought in her home unit and is compliant with this therapy. The aforementioned impression and plan has been discussed with Dr. Whitten, who will follow further recommendations. We thank you for this consult and look forward to participating in the care of Ms. Nahid Brito. GBS/MODL Levon Olivarez PA-C / [id number] CC: Joel Guidry M.D.
[2016-06-08] MEDS ORDERED: SPIRIVA RESPIMAT INH (16:18)
[2016-06-09 08:43] LABS: BUN (BLOOD UREA NITROGEN) 42 MG/DL (6-23); CALCIUM, SERUM 8.3 MG/DL (8.5-10.4); CHLORIDE, SERUM 106 MMOL/L (96-112); CO2 (CARBON DIOXIDE) 26 MMOL/L (24-34); CREATININE 1.88 MG/DL (0.55-1.02); GFR AFRICAN AMERICAN 30 ML/MIN (>=60); GFR NON AFRICAN AMERICAN 26 ML/MIN (>=60); GLUCOSE, SERUM 76 MG/DL (60-99); SODIUM, SERUM 141 MMOL/L (135-148)
[2016-06-10 07:29] LABS: BASOPHILS 0.1 %; BASOPHILS ABSOLUTE 0.01 10/3/uL (0.0-0.16); EOSINOPHILS 0.3 %; EOSINOPHILS ABSOLUTE 0.03 10/3/uL (0.0-0.53); HEMATOCRIT 31.1 % (36.0-48.0); HEMOGLOBIN 9.5 g/dL (12.0-16.0); IMMATURE GRANULOCYTES 0.6 %; IMMATURE GRANULOCYTES ABSOLUTE 0.06 10/3/uL (0.0-0.11); LYMPHOCYTES 41.2 %; LYMPHOCYTES ABSOLUTE 4.21 10/3/uL (0.67-4.30); MANUAL DIFF NO %; MEAN CORPUS HGB CONC 30.5 g/dL (32.0-36.0); MEAN CORPUSCULAR HEMOGLOB 20.9 pg (26.0-34.0); MEAN CORPUSCULAR VOLUME 68.4 fL (80-100); MONOCYTES 7.4 %; MONOCYTES ABSOLUTE 0.76 10/3/uL (0.21-1.20); NEUTROPHILS 50.4 %; NEUTROPHILS ABSOLUTE 5.15 10/3/uL (2.02-8.40); PLATELET COUNT 193 10/3/uL (150-400); RBC DISTRIBUTION WIDTH 17.7 % (12.0-16.0); RED CELL COUNT 4.55 10/6/uL (4.0-5.6); WHITE BLOOD CELLS 10.2 10/3/uL (4.5-10.5)
[2016-06-10 07:43] LABS: BUN (BLOOD UREA NITROGEN) 44 MG/DL (6-23); CALCIUM, SERUM 8.7 MG/DL (8.5-10.4); CHLORIDE, SERUM 103 MMOL/L (96-112); CO2 (CARBON DIOXIDE) 26 MMOL/L (24-34); CREATININE 1.97 MG/DL (0.55-1.02); GFR AFRICAN AMERICAN 29 ML/MIN (>=60); GFR NON AFRICAN AMERICAN 25 ML/MIN (>=60); GLUCOSE, SERUM 69 MG/DL (60-99); PHOSPHORUS, SERUM 3.3 MG/DL (2.5-4.5); POTASSIUM, SERUM 3.9 MMOL/L (3.5-5.3); SODIUM, SERUM 139 MMOL/L (135-148)
[2016-06-10 08:14] LABS: ANISOCYTOSIS 1+ (5-10/OIF) (0-5/OIF); ELLIPTOCYTES 1+ (3-10/OIF) (0-2/OIF); HYPOCHROMIA 1+ (3-10/OIF) (0-2/OIF); PLATELET ESTIMATE ADQ (ADEQUATE); POLYCHROMASIA 1+ (2-5/OIF) (0-1/OIF); TEARDROP SHAPED RBCS FEW (3-10/OIF)
[2016-06-10 08:15] LABS: ACANTHOCYTES OCC (0-2/OIF); HELMET CELLS OCC (0-2/OIF); POIKILOCYTOSIS 1+ (5-10/OIF) (0-5/OIF); SCHISTOCYTES OCC (0-2/OIF); TARGET CELLS OCC (1-2/OIF) (0-1/OIF)
[2016-06-10 08:16] LABS: MACROCYTES 1+ (5-10/OIF) (0-5/OIF); SPHEROCYTES OCC (0-2/OIF)
[2016-06-11 13:07] LABS: BUN (BLOOD UREA NITROGEN) 46 MG/DL (6-23); CALCIUM, SERUM 9.2 MG/DL (8.5-10.4); CHLORIDE, SERUM 100 MMOL/L (96-112); CO2 (CARBON DIOXIDE) 30 MMOL/L (24-34); CREATININE 2.17 MG/DL (0.55-1.02); GFR AFRICAN AMERICAN 25 ML/MIN (>=60); GFR NON AFRICAN AMERICAN 22 ML/MIN (>=60); POTASSIUM, SERUM 3.8 MMOL/L (3.5-5.3); SODIUM, SERUM 140 MMOL/L (135-148)
[2016-06-11 13:08] LABS: GLUCOSE, SERUM 100 MG/DL (60-99)
== END 2016-06-13 20:40 | disposition home or self-care (01) | DRG 291 ==
LOC: 4SO 14:52
PROVIDERS: Internal Medicine Geriatric Medicine; Physician Assistant Medical
DX: I13.0 Hypertensive heart and chronic kidney disease with heart failure and stage 1 through stage 4 chronic kidney disease, or unspecified chronic kidney disease (principal); I50.33 Acute on chronic diastolic (congestive) heart failure; N18.4 Chronic kidney disease, stage 4 (severe); Z68.43 Body mass index [BMI] 50.0-59.9, adult; J45.51 Severe persistent asthma with (acute) exacerbation; Z95.1 Presence of aortocoronary bypass graft; J44.9 Chronic obstructive pulmonary disease, unspecified; E66.01 Morbid (severe) obesity due to excess calories; G47.33 Obstructive sleep apnea (adult) (pediatric); Z79.02 Long term (current) use of antithrombotics/antiplatelets; Z79.4 Long term (current) use of insulin; Z79.51 Long term (current) use of inhaled steroids; Z87.891 Personal history of nicotine dependence; E78.00 Pure hypercholesterolemia, unspecified; Z88.1 Allergy status to other antibiotic agents; Z91.018 Allergy to other foods; M10.9 Gout, unspecified
CPT/HCPCS: 36600; 71020; 80048; 82785; 82805; 82962; 83735; 83880; 84100; 84484; 85025; 85610; 85730; 93005; 93306; 94640; 94644; 96374; 99285; A9270-GY; J2930